=== PATIENT | male | born 1975 | race Caucasian/White ===

== ENCOUNTER 2016-12-16 15:45 | Emergency (ER) | payer SELFPAY ==
--- NOTE | 2017-01-11 08:19 | ER ---
ADMIT: 12/16/2016 RM/LOC: ER [facility] MR#: [id number] [address] [id number] DAVID SOLOMON [address] [place] [address] Emergency Room Report SEX: M AGE: 41 : 1975 DATE: 12/16/2016 ADDENDUM: CHIEF COMPLAINT: Left forearm pain. HISTORY OF PRESENT ILLNESS: This is a 41-year-old, who felt a pop in his left forearm, but there was no trauma to the arm. I did not x-ray it due to there not being trauma. I told him this could be either a muscle strain or a tendon issue. He has full range of motion of all his fingers. He has full range of motion with his hand. CLINICAL IMPRESSION: Left forearm strain. DISPOSITION: I told him to ice, use ibuprofen and Tylenol for pain. Follow up with his primary care physician if symptoms continue. NKECHI Nuñez / Manjeet Oliva MD / samyl JOB #: [id number] CC: Manjeet Oliva MD, Attending Physician Tremayne Kenny MD, Family Physician
== END 2016-12-16 16:10 | disposition home or self-care (01) ==
LOC: ER 15:45
DX: S56.912A Strain of unspecified muscles, fascia and tendons at forearm level, left arm, initial encounter (principal); X58.XXXA Exposure to other specified factors, initial encounter